=== PATIENT | female | born 1965 | race Caucasian/White ===

== ENCOUNTER 2016-12-26 23:59 | Emergency (ER) | payer OTHER ==
--- NOTE | ~2016-12-26 | CR230 ---
[facility] A Service of [facility] & [facility] RADIOLOGY TEXT RESULTS PATIENT: PATRICK GARNER LOCATION: [facility] : 61 UNIT #: [id number] AGE: [address]: Maryam Mcallister SEX: F ORDER DR: [id number] [facility] [address] [place], [place] [address] [id number] MR#: [id number] Acc #: [id number] NAME: PATRICK GARNER : 1965 SEX: F STUDY DATE/TIME: 12/27/2016 00:34 UNIT: [facility] ROOM: STUDY DESCRIPTION: CR Shoulder Min 2 View Rt Attending Physician: Maryam Mcallister Pa-C Ordering Physician: Mayram Mcallister Pa-C Primary Care Physician: Denita Stockton M.D. MEDICAL IMAGING REPORT This report is preliminary unless electronic signature is present EXAM Right shoulder, 12/27/2016 at 0034 hours. INDICATION Shoulder pain for 2 weeks. No trauma. FINDINGS 3 views of the right shoulder were obtained. There is a minimally displaced fracture of the greater tuberosity of the proximal humerus. No glenohumeral dislocation is seen. 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 IMPRESSION Minimally displaced fracture of the greater tuberosity of the humerus. 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 No dislocation. Dictated by... Shoaib Garcia Jr., M.D. THIS IS AN ELECTRONICALLY VERIFIED REPORT Shoaib Garcia Jr., M.D. at 12/27/2016 6:07 AM DAMARI/ni TD: 12/27/2016 04:07 JOB #: [id number] MEDICAL IMAGING REPORT Page 1 of 1 COPY
== END 2016-12-27 01:16 | disposition home or self-care (01) ==
LOC: CFTX 23:59
DX: S42.251A Displaced fracture of greater tuberosity of right humerus, initial encounter for closed fracture (principal); F17.210 Nicotine dependence, cigarettes, uncomplicated; X58.XXXA Exposure to other specified factors, initial encounter
CPT/HCPCS: 73030; 99283

== ENCOUNTER → 2017-03-13 | Outpatient (CLI) | payer OTHER ==
--- NOTE | ~2017-03-13 | MR165 ---
[facility] A Service of [facility] & [facility] RADIOLOGY TEXT RESULTS PATIENT: PATRICK GARNER LOCATION: [facility] : 61 UNIT #: [id number] AGE: [address]: Nikita Persaud MD SEX: F ORDER DR: [id number] [facility] [address] [place], [place] [address] [id number] O MR#: [id number] Acc #: [id number] NAME: PATRICK GARNER : 1965 SEX: F STUDY DATE/TIME: 03/13/2017 16:13 UNIT: [facility] ROOM: STUDY DESCRIPTION: MR Shoulder Wo Contrast Rt Attending Physician: Nikita Persaud M.D. Referring Physician: Nikita Persaud M.D. Ordering Physician: Nikita Persaud M.D. Primary Care Physician: Denita Stockton M.D. MRI CENTER REPORT This report is preliminary unless electronic signature is present. EXAM MRI right shoulder, 03/13/2017. COMPARISON Right shoulder radiographs on 12/27/2016, 01/09/2017, 02/07/2017, 03/07/2017. FINDINGS There is minimal spurring at the AC joint, but no evidence of recent injury. There is lateral downsloping and enthesophyte formation of the acromion at the coracoacromial ligament insertion. Coracoclavicular ligaments are intact. Previously reported greater tuberosity fracture is noted and measures 2.6 cm AP with very minimal cranial displacement (1 mm). There is associated mild to moderate marrow edema. There is a moderate tendinosis or strain of the supraspinatus and infraspinatus tendons with moderate inflammation and fluid in the subacromial--subdeltoid bursa presumably reactive to the fracture. There is no discrete rotator cuff tear. Subscapularis and teres minor tendons are intact. There is no rotator cuff muscle atrophy. There is a linear signal involving the biceps anchor and adjacent anterior/superior labrum without posterior extension. There is also a longitudinal signal in the long head proximal biceps tendon extending into the anterior interval. Small focal anterior-superior labral tear and biceps tendinosis or possible. The remainder of the labrum is unremarkable. Glenohumeral joint demonstrates a mild effusion but no chondral/osteochondral lesion, or visible loose body. [facility]. [facility] A Service of [facility] & [facility] RADIOLOGY TEXT RESULTS PATIENT: PATRICK GARNER [id number] [birth year] UNIT #: [id number] AGE: [address]: Nikita Persaud MD SEX: F ORDER DR: There is no marrow lesion or additional fracture. IMPRESSION 1. Greater tuberosity fracture with adjacent inflammation and/or hemorrhage in the subacromial-subdeltoid bursa. 2. Marked tendinosis or strain of the supraspinatus and infraspinatus tendons without a discrete tear. 3. Equivocal focal tear at the biceps anchor and anterior superior labrum without posterior extension with longitudinal tendinosis in the proximal long-head biceps tendon. Focal biceps/labral pathology could be better characterized with MR arthrography if clinically warranted. 4. Minimal AC joint arthrosis and acromial enthesopathy and lateral downsloping of the acromion. 5. Nonspecific small glenohumeral effusion. Dictated by... Indira Null M.D. THIS IS AN ELECTRONICALLY VERIFIED REPORT Indira Null M.D. at 03/15/2017 11:19 AM ANGIE/sara TD: 03/14/2017 18:11 JOB #: [id number] MRI CENTER REPORT Page 1 of 1 COPY
== END | disposition home or self-care (01) ==
LOC: CMRI 15:50
DX: S42.91XA Fracture of right shoulder girdle, part unspecified, initial encounter for closed fracture (principal); S43.401A Unspecified sprain of right shoulder joint, initial encounter; M75.51 Bursitis of right shoulder; M19.011 Primary osteoarthritis, right shoulder; M25.411 Effusion, right shoulder
CPT/HCPCS: 73221